=== PATIENT | male | born 1965 | race African-American/Black ===

== ENCOUNTER 2016-04-24 19:21 | Inpatient (IN) | payer OTHER ==
[2016-04-24 19:36] VITALS: BMI 24.3
--- NOTE | 2016-04-24 20:24 | PDOC ---
History of Present Illness - General History Source: Patient, Old Records Exam Limitations: No Limitations - History of Present Illness Initial Comments: 04/24/16 20:52 The patient is a 51 year old male with a past medical history of ETOH abuse, HTN , Type II diabetes, and minor stroke, who [facility], who presents with worsening abdominal and chest pain for a couple days and a syncopal episode today. The patient states that his pain started in his abdomen and began to radiate to his upper left chest. The patient notes that he has had similar pain before but not this severe. The patient reports that his pain is exacerbated by certain movements and deep inhalation. The patient reports no vomiting today but has had episodes haematemesis over the past few days. The patient reports associated hematochezia and shortness of breath. The patient reports that he has been non- compliant with his medications. The patient notes that his last ETOH intake was 3-4 hours ago so that he could alleviate tremors. <Randy Kapadia - Last Filed: 04/25/16 01:00> - General History Source: Patient Exam Limitations: No Limitations <Esme Padron - Last Filed: 04/26/16 08:07> - General Chief Complaint: Pain, Acute Stated Complaint: CHEST AND ABDOMINAL PAIN Time Seen by Provider: 04/24/16 19:30 Past History <Randy Kapadia - Last Filed: 04/25/16 01:00> - Past Medical History Anemia: No Asthma: No Cancer: No Cardiac Disorders: No CVA: No COPD: No CHF: No Dementia: No Diabetes: Yes GI Disorders: No Disorders: No HTN: Yes Hypercholesterolemia: No Kidney Stones: No Liver Disease: No Suicide Attempt (Hx): No Seizures: No Thyroid Disease: No - Surgical History Abdominal Surgery: No Appendectomy: No Cardiac Surgery: No Cholecystectomy: No Lung Surgery: No Neurologic Surgery: No Orthopedic Surgery: No - Reproductive History Testicular Surgery: No - Psycho/Social/Smoking Cessation Hx Anxiety: No Suicidal Ideation: No Smoking History: Current every day smoker Have you smoked in the past 12 months: Yes Number of Cigarettes Smoked Daily: 10 Information on smoking cessation initiated: No 'Breaking Loose' booklet given: 02/16/14 Hx Alcohol Use: Yes (daily last use this am) Drug/Substance Use Hx: No Substance Use Type: Alcohol Hx Substance Use Treatment: Yes <Esme Padron - Last Filed: 04/26/16 08:07> - Past Medical History Allergies/Adverse Reactions: Allergies Allergy/AdvReac Type Severity Reaction Status Date / Time No Known Allergies Allergy Verified 04/24/16 19:30 Home Medications: Ambulatory Orders Lisinopril [Prinivil] 20 mg PO DAILY #30 tablet 09/21/13 Metformin HCl [Glucophage -] 500 mg PO BIDAC #60 tablet 09/21/13 Review of Systems - Review of Systems Able to Perform ROS?: Yes Comments:: 04/24/16 20:52 GENERAL/CONSTITUTIONAL: No: fever, chills, weakness, loss of appetite. HEAD, EYES, EARS, NOSE AND THROAT: No: change in vision, ear pain, discharge, sore throat, throat swelling. CARDIOVASCULAR: Yes: Chest pain No: lightheadedness, palpitations, syncope RESPIRATORY: Yes: Shortness of breath No: cough, wheezing, hemoptysis, stridor. GASTROINTESTINAL: Yes: Hematochezia, hematemesis, abdominal pain. No: nausea, diarrhea, constipation. GENITOURINARY: No: dysuria, hematuria, frequency, urgency, flank pain. MUSCULOSKELETAL: No: back pain, neck pain, joint pain, muscle swelling or pain SKIN: No: lesions, pallor, rash or easy bruising. NEUROLOGIC: Yes: Syncope No: headache, vertigo, paresthesias, weakness ENDOCRINE: No: unexplained weight gain or loss HEMATOLOGIC/LYMPHATIC: No: anemia, easy bleeding, swelling nodes <Randy Kapadia - Last Filed: 04/25/16 01:00> *Physical Exam - Vital Signs Last Vital Signs Temp Pulse Resp BP Pulse Ox 97.8 F 84 24 147/102 97 04/24/16 20:28 04/24/16 20:28 04/24/16 20:28 04/24/16 20:28 04/24/16 20:28 - Physical Exam Comments: 04/24/16 20:52 GENERAL: The patient is in no acute distress. HEAD: Normal with no signs of trauma. EYES: PERRLA, EOMI, sclera anicteric, conjunctiva clear. ENT: Ears normal, nares patent, oropharynx clear without exudates. Moist mucous membranes. NECK: Normal range of motion, supple without lymphadenopathy, JVD, or masses. LUNGS: Breath sounds equal, clear to auscultation bilaterally. No wheezes, and no crackles. HEART:Regular rate and rhythm, normal S1 and S2 without murmur, rub or gallop. ABDOMEN: (+) Abnormal right inferior costal margin. Otherwise soft, nontender, normoactive bowel sounds. No guarding, no rebound. EXTREMITIES: Normal range of motion, no edema. No clubbing or cyanosis. No erythema, or tenderness. NEUROLOGICAL: Cranial nerves II through XII grossly intact. Normal speech. No focal neurological deficits. MUSCULOSKELETAL: Back nontender to palpation, no CVA tenderness SKIN: Warm, Dry, normal turgor, no rashes or lesions noted. <Randy Kapadia - Last Filed: 04/25/16 01:00> - Vital Signs Last Vital Signs Temp Pulse Resp BP Pulse Ox 97.9 F 102 H 22 83/49 97 04/24/16 19:30 04/24/16 19:30 04/24/16 19:30 04/24/16 19:30 04/24/16 19:30 <Esme Padron - Last Filed: 04/26/16 08:07> Heart Score/ECG Review - ECG Impressions Comment:: 04/24/16 20:53 1. ECG Impression: Normal sinus rhythm. Moderate voltage criteria for LVH, may be normal variant. Borderline ECG. Read and reviewed by Dr. Joceline Padron MD. <Randy Kapadia - Last Filed: 04/25/16 01:00> ED Treatment Course - LABORATORY CBC & Chemistry Diagram: 04/24/16 20:05 04/24/16 20:05 - ADDITIONAL ORDERS Additional order review: 04/24/16 20:05 RBC 4.60 D MCV 96.7 H MCHC 33.8 RDW 14.8 MPV 8.1 D Neutrophils % 71.3 Lymphocytes % 19.5 Monocytes % 7.8 Eosinophils % 0.0 Basophils % 1.4 - RADIOLOGY Radiograph Interpretation: 04/24/16 21:14 EXAM#: TYPE/EXAM: RESULT: [id number] RAD/CHEST X-RAY PORTABLE* Preadmission. Portable chest x-ray semierect. No prior is available for comparison. Inferior tip of the lateral costophrenic angles were not included. The cardiac silhouette is within normal limits in size and the lung is clear. Mediastinum and visualized osseous structures appear intact. Impression: No acute cardiopulmonary disease is present. Reported By: Randal Mesa MD Chest wall deformity. Rule out pancreatitis. CT scan of the chest, abdomen and pelvis without oral and intravenous contrast Compared to prior chest x-ray dated 04/24/2016. No prior CT scan is available for comparison. Included lower neck appears unremarkable. The heart is within normal limits in size with dilatation of the coronary arteries are present. No enlarged mediastinal or hilar lymph nodes are identified. Lung windows demonstrates minimal atelectatic changes in the dependent portion of the left lower lobe. In the abdomen and pelvis, liver is within normal limits in size with diffuse decreased attenuation consistent with a fatty liver. Gallbladder is partially distended with small intraluminal stones. The spleen, pancreas, both adrenal glands and both kidneys appear unremarkable. Stomach is partially distended limiting evaluation of its wall. There is no evidence of small bowel obstruction or enlarged retroperitoneal lymph nodes. Normal stool burden in the colon without wall thickening. Normal-appearing terminal ileum and appendix. Moderately distended urinary bladder without gross thickening of its wall. Normal size prostate gland. Perirectal and pericecal fat is clear. Visualized osseous structures appear intact with mild degenerative disc disease at L2-L3 level Impression: No enlarged mediastinal or hilar lymph nodes are identified. Calcification of the coronary arteries are present. No evidence of acute lung disease. Fatty liver. Small gallstones without CT evidence of acute cholecystitis. Normal-appearing pancreas without stranding of the surrounding fat. Reported By: Randal Mesa MD. Clinical indication: Transaminitis. Findings: The aorta has a normal appearance and normal caliber. The liver parenchyma is hyperechoic with fatty infiltration. The liver is mildly enlarged measuring 17.7 cm in length. Hepatopedal flow is demonstrated in the main portal vein. The CBD measures 4 mm in diameter within normal limits. Cholelithiasis and sludge noted in the gallbladder. There is no mural thickening or pericholecystic fluid. The right kidney has a normal appearance and echotexture measures 10.1 cm in length. No parenchymal mass, shadowing calculus or hydronephrosis is seen. Impression: Hepatic steatosis. Cholelithiasis and sludge in an otherwise unremarkable gallbladder. Reported by Dr. Carlos Hagen MD. <Randy Kapadia - Last Filed: 04/25/16 01:00> - LABORATORY CBC & Chemistry Diagram: 04/25/16 06:00 04/25/16 06:00 <Esme Padron - Last Filed: 04/26/16 08:07> Medical Decision Making - Medical Decision Making 04/24/16 20:18 I, Dr. Esme Padron, attest that this document has been prepared under my direction and personally reviewed by me in its entirety. I further attest, that it accurately reflects all work, treatment, procedures and medical decision -making performed by me. This is a 51 yo M with a history of alcohol abuse, h/o DM (non compliant), ?MS vs. ?CVA Pt was seen at [facility] today for alcohol detox Pt presents with epigastric pain, no radiation to the back Pt reported severe right lower chest wall pain and deformity PT denies trauma, falling Has no bruising 04/24/16 21:28 Laboratory Tests 10/17/13 10/17/13 04/24/16 08:15 08:15 20:05 WBC 3.4 L 4.1 Hgb 13.0 15.0 D Hct 38.4 44.5 D Plt Count 91 L D 148 D Sodium Potassium Chloride Carbon Dioxide BUN 6 L D Anion Gap Creatinine 0.9 Random Glucose AST 201 H D ALT 110 H D Alkaline Phosphatase Creatine Kinase Troponin I Lipase 04/24/16 20:05 WBC Hgb Hct Plt Count Sodium 129 L Potassium 4.8 Chloride 90 L D Carbon Dioxide 26 BUN 9 D Anion Gap 13 Creatinine 1.8 H D Random Glucose 175 H D AST 208 H ALT 95 H Alkaline Phosphatase 192 H D Creatine Kinase 1423 H Troponin I < 0.02 Lipase 583 H 04/24/16 21:30 04/24/16 23:13 CT chest: Atalectatic changes in the left lower lobe CT abd and pelvis: Fatty liver, GB distended with small intraluminal stones, spleen, pancreas and adrenal glands nml. No SBO. Case reviewed with hospitalist Pt has risk factors for CAD (? prior MS???) Presenting with epigastric pain Labs demonstrate pancreatitis however, given elevated CKMB and these symptoms, will place on tele. <Esme Padron - Last Filed: 04/26/16 08:07> *DC/Admit/Observation/Transfer - Attestations Scribe Attestion: 03/08/17 20:52 Documentation prepared by Randy Kapadia, acting as medical technologist chemistry for Esme Padron MD. <Randy Kapadia - Last Filed: 04/25/16 01:00> - Discharge Dispostion Admit: Yes <Esme Padron - Last Filed: 04/26/16 08:07> Diagnosis at time of Disposition: Epigastric pain, Alcohol abuse Pancreatitis Qualifiers: Chronicity: acute Pancreatitis type: alcohol induced Qualified Code(s): K85.2 - Alcohol induced acute pancreatitis - Discharge Dispostion Condition at time of disposition: Stable
[2016-04-24 20:32] LABS: INR 1.12 (0.82-1.09); PROTHROMBIN TIME (PATIENT) 12.4 SEC (9.98-11.88)
[2016-04-24 20:42] LABS: ALBUMIN 4.1 g/dl (3.4-5.0); ANION GAP 13 (8-16); BASOPHIL 1.4 % (0-2.0); BILIRUBIN,TOTAL 0.9 mg/dL (0.2-1.0); CALCIUM 9.3 mg/dL (8.5-10.1); CO2 26 mmol/L (21-32); CREATININE 1.8 mg/dL (0.7-1.3); GLUCOSE,RANDOM 175 mg/dL (74-106); MCH 32.7 pg (25.7-33.7); MCHC 33.8 g/dl (32.0-35.9); MEAN CELL VOLUME 96.7 fl (80-96); MEAN PLT VOLUME 8.1 fl (7.5-11.1); NEUTROPHILS 71.3 % (42.8-82.8); PLATELET COUNT 148 K/MM3 (134-434); RDW 14.8 % (11.9-15.9); SGOT/AST 208 U/L (15-37); SGPT/ALT 95 U/L (12-78); TOT PROT 9.3 g/dl (6.4-8.2); WHITE BLOOD COUNT 4.1 K/mm3 (4.0-10.0)
[2016-04-24 20:55] LABS: ALK PHOS 192 U/L (45-117); TROPONIN I < 0.02 ng/ml (0.00-0.05)
[2016-04-24] MEDS ORDERED: FOLIC ACID INJECTION - 1 MG, THIAMINE HCL 100 MG, MULTIVIT INJECTION ADULT 10 ML in SOD... IVPB ONE (21:29)
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
[2016-04-24] MEDS ORDERED: ASPIRIN 81 MG CHEWABLE TABLETS PO ONE (23:35)
[2016-04-24] MEDS ORDERED: ASPIRIN 325 MG TABLET ONE (23:40)
[2016-04-25] MEDS ORDERED: LORAZEPAM CARPU-JECT 2 MG/ML DISP.SYRIN ONE ×2 (00:46→13:26)
[2016-04-25] MEDS: LORAZEPAM CARPU-JECT 2 MG/ML DISP.SYRIN IVPUSH PRN ×3 (01:02→16:00)
[2016-04-25 07:03] LABS: BASOPHIL 1.5 % (0-2.0); EOSINOPHIL 0.3 % (0-4.5); MCH 32.9 pg (25.7-33.7); MEAN CELL VOLUME 96.9 fl (80-96); MEAN PLT VOLUME 8.2 fl (7.5-11.1); NEUTROPHILS 51.2 % (42.8-82.8); PLATELET COUNT 110 K/MM3 (134-434); WHITE BLOOD COUNT 3.7 K/mm3 (4.0-10.0)
[2016-04-25 07:27] LABS: ALBUMIN 3.4 g/dl (3.4-5.0); ANION GAP 12 (8-16); CALCIUM 8.4 mg/dL (8.5-10.1); CO2 24 mmol/L (21-32); CREATININE 0.9 mg/dL (0.7-1.3); GLUCOSE,RANDOM 85 mg/dL (74-106); MAGNESIUM 1.8 mg/dL (1.8-2.4); SGOT/AST 135 U/L (15-37); SGPT/ALT 73 U/L (12-78)
[2016-04-25 07:30] LABS: TROPONIN I < 0.02 ng/ml (0.00-0.05)
[2016-04-25 07:45] LABS: ALK PHOS 158 U/L (45-117); CHOLESTEROL 271 mg/dL (50-200); LDL CHOLESTEROL (ONLY SJRH) 103 mg/dL (5-100); PHOSPHOROUS 3.6 mg/dL (2.5-4.9); TOT PROT 7.7 g/dl (6.4-8.2)
[2016-04-25] MEDS ORDERED: LACTATED RINGERS SOLUTION 1,000 ML IV SCH (08:00)
[2016-04-25] MEDS ORDERED: chlordiazePOXIDE HCL 25 MG CAPSULE PO PRN (09:01)
--- NOTE | 2016-04-25 09:20 | PN ---
Progress Note (short form) - Note Progress Note: Cardiology Consult Dictated Alcoholism Abdominal Pain, elevated Lipase Coronary Ca2+ incidentally detected on abdominal CT REC: 3rd enzyme Echo ASA Check Lipids Strongly suggest GI evalution and Rehab/Addiction medicine consult for ETOH To consider stress test either prior to d/c or as outpatient if 3rd enzyme negative.
[2016-04-25] MEDS: SODIUM CHLORIDE 1,000 ML IV SCH (10:04)
[2016-04-25] MEDS ORDERED: FOLIC ACID 1 MG TABLET (FP) ONE (10:10)
[2016-04-25] MEDS ORDERED: ASPIRIN 81 MG CHEWABLE TABLETS ONE (10:10)
[2016-04-25] MEDS: ASPIRIN 81 MG CHEWABLE TABLETS PO SCH (10:13)
[2016-04-25] MEDS: FOLIC ACID 1 MG TABLET (FP) PO SCH (10:13)
[2016-04-25] MEDS: chlordiazePOXIDE HCL 25 MG CAPSULE PO SCH ×4 (10:13→22:53)
--- NOTE | 2016-04-25 10:48 | EKG ---
Test Reason : Blood Pressure : / mmHG Vent. Rate : 080 BPM Atrial Rate : 080 BPM P-R Int : 196 ms QRS Dur : 096 ms QT Int : 366 ms P-R-T Axes : 061 082 082 degrees QTc Int : 422 ms NORMAL SINUS RHYTHM MODERATE VOLTAGE CRITERIA FOR LVH, MAY BE NORMAL VARIANT BORDERLINE ECG NO PREVIOUS ECGS AVAILABLE Confirmed by LINCOLN PALOMINO MD ([id number]) on 04/25/2016 10:48:27 AM Referred By: Confirmed By:LINCOLN PALOMINO MD
[2016-04-25] MEDS ORDERED: chlordiazePOXIDE HCL 25 MG CAPSULE PO SCH (11:00)
--- NOTE | 2016-04-25 11:01 | PN ---
Physical Exam: SUBJECTIVE: Patient seen and examined at bedside. Pt. reports feeling weak today. Mild diaphoresis noted. Pt. states he feels "shaky". Denies abdominal pain, nausea. Pt. denies hematemesis, had one episode of bright red blood per rectum approximately 1 month ago and has not had any recurring symptoms since. One bowel movement in the toilet. Brown stool with no evidence of gross blood. OBJECTIVE: Vital Signs Period Temp Pulse Resp BP Sys/Nye Pulse Ox Last 24 Hr 98 F-98.1 F 73-74 18-22 125-155/87-90 96-96 GENERAL: The patient is awake, alert, and fully oriented to person, place, and time, in no acute distress. HEAD: Normal with no signs of trauma. EYES: PERRL, extraocular movements intact, sclera anicteric, conjunctiva clear. No ptosis. ENT: Ears normal, nares patent, oropharynx clear without exudates, moist mucous membranes. NECK: Trachea midline, full range of motion, supple. LUNGS: Breath sounds equal, clear to auscultation bilaterally, no wheezes, no crackles, no accessory muscle use. HEART: Regular rate and rhythm, S1, S2 without murmur, rub or gallop. ABDOMEN: Soft, nontender, nondistended, normoactive bowel sounds, no guarding, no rebound, no hepatosplenomegaly, no masses. RECTAL: External: no hemorrhoids or fissures noted. Normal sphincter tone. EXTREMITIES: 2+ pulses, warm, well-perfused, no edema. NEUROLOGICAL: Cranial nerves II through XII grossly intact. Normal speech, gait not observed. PSYCH: Mildly anxious. Normal affect. Denies auditory/visual hallucinations, tactile disturbances. (+) tremor. SKIN: (+) diaphoresis. Warm, normal turgor, no rashes or lesions noted Laboratory Results - last 24 hr 04/25/16 04/25/16 04/25/16 06:00 06:00 06:00 WBC 3.7 L RBC 3.86 L Hgb 12.7 D Hct 37.5 D MCV 96.9 H MCHC 34.0 RDW 15.0 Plt Count 110 L D MPV 8.2 Neutrophils % 51.2 D Lymphocytes % 38.5 D Monocytes % 8.5 Eosinophils % 0.3 D Basophils % 1.5 Sodium 134 L Potassium 4.1 Chloride 98 Carbon Dioxide 24 Anion Gap 12 BUN 9 Creatinine 0.9 D Creat Clearance w eGFR > 60 Random Glucose 85 D Calcium 8.4 L Phosphorus 3.6 Magnesium 1.8 Total Bilirubin 1.0 AST 135 H D ALT 73 D Alkaline Phosphatase 158 H Creatine Kinase 950 H D CK-MB (CK-2) Rel Index Troponin I < 0.02 Total Protein 7.7 Albumin 3.4 Triglycerides 134 Cholesterol 271 H Total LDL Cholesterol 103 H HDL Cholesterol 157 H Lipase 274 04/25/16 06:00 WBC RBC Hgb Hct MCV MCHC RDW Plt Count MPV Neutrophils % Lymphocytes % Monocytes % Eosinophils % Basophils % Sodium Potassium Chloride Carbon Dioxide Anion Gap BUN Creatinine Creat Clearance w eGFR Random Glucose Calcium Phosphorus Magnesium Total Bilirubin AST ALT Alkaline Phosphatase Creatine Kinase CK-MB (CK-2) Rel Index Cancelled Troponin I Total Protein Albumin Triglycerides Cholesterol Total LDL Cholesterol HDL Cholesterol Lipase Active Medications Generic Name Dose Route Start Last Admin Trade Name Freq PRN Reason Stop Dose Admin Aspirin 81 mg 04/25/16 10:00 04/25/16 10:13 Asa - PO 81 mg DAILY KYLE Administration Chlordiazepoxide HCl 25 mg 04/25/16 09:01 Librium - PO 04/28/16 09:00 Q4H PRN WITHDRAWAL(CONT SUBST) Chlordiazepoxide HCl 25 mg 04/26/16 11:00 Librium - PO 04/27/16 05:01 [id number] KYLE Chlordiazepoxide HCl 15 mg 04/27/16 11:00 Librium - PO 04/28/16 05:01 [id number] KYLE Chlordiazepoxide HCl 50 mg 04/25/16 10:00 04/25/16 10:13 Librium - PO 04/25/16 23:01 50 mg [id number] KYLE Administration Folic Acid 1 mg 04/25/16 10:00 04/25/16 10:13 Folic Acid - PO 1 mg DAILY KYLE Administration Sodium Chloride 1,000 mls @ 125 mls/hr 04/25/16 08:00 04/25/16 10:04 Normal Saline - IV 125 mls/hr ASDIR KYLE Administration Lorazepam 2 mg 04/24/16 22:47 04/25/16 01:02 Ativan Injection - IVPUSH 04/25/16 16:48 2 mg Q6H PRN Administration WITHDRAWAL(CONT SUBST) Thiamine HCl 100 mg 04/25/16 10:00 Vitamin B1 - PO DAILY KYLE ASSESSMENT/PLAN: Imaging/Reports: EKG: NSR at a rate of 80. Upward sloping ST elevations present in leads V3, V4. No reciprocal changes noted. LVH noted. CT Head: No evidence of ICH, no acute ischemic changes Abd/Chest CT: No enlarged mediastinal/hilar lymphnodes are identified. Calcification of the coronary arteries present. No evidence of acute lung disease. Small gallstones without CT evidence of acute cholecystitis. Normal appearing pancreas without stranding of the surrounding fat. CXR: No evidence of acute cardiopulmonary disease present. RUQ US: hepatomegaly with hepatic steatosis, normal pancreas, no focal liver mass/biliary dilatation, gall stones noted with no gall bladder wall thickening identified without biliary sludge observed. Pt. is a 51 y/o male with a PMH of HTN, DM Type II, Chronic Alcohol abuse, presents to the ED complaining of chest pain, epigastric pain with syncopal episode. 1. Chest pain r/o ACS -- CK trending down today. 1423 --> 769 -- Troponin series negative. -- Repeat EKG -- Echo ordered -- Consider inpatient stress test. -- Cardiology consult appreciated -- Continue with ASA 2. Syncope: -- CT head is negative for ICH. -- Continue tele monitoring. -- Possibly d/t dehydration as shown by hyponatremia, hypovolemia, STALIN. 3. Alcohol abuse/ withdrawal: -- CIWA score 10. -- Librium protocol started (Day #1). First dose at 10:00 -- Pt has history of seizures d/t alcohol withdrawal. -- Ativan PRN for break through symptoms -- Continue Thiamine and folic acid -- Heme occult testing for reported hematochezia. 4. Elevated Lipase Levels: -- Resolved: Lipase today 274; no abdominal pain on exam -- Lipase was elevated yesterday (583). While the value was elevated, was not elevated to three times normal which is diagnostic for pancreatitis. -- Continue with IVF 4. Transaminitis: -- Liver Enzymes trending down today -- AST 208 --> 135 -- ALT 95 --> 73 -- Will start librium protocol at this time. -- RUQ US: hepatomegaly with hepatic steatosis, normal pancreas, no focal liver mass/biliary dilatation, gall stones noted with no gall bladder wall thickening identified. No biliary sludge observed. -- Hepatitis panel pending. -- Will continue to trend. 5. STALIN: -- Secondary to elevated CK, trending down today -- Creatinine trending down. 1.8 --> 0.9 -- Continue with IV fluids 6. Hyponatremia: -- Na increased from yesterday, 129 -->134 -- Will continue with IV fluids. FEN -- IVF, NS @ rate of 120 per hr. -- Replete as necessary; sodium trending upward with fluids -- Advance to clear liquid diet DVT prophylaxis: lovenox SQ daily; SCD's Pt. continues to require inpatient care; will consider cardiac stress test when pt. is medically stable. Full Code. Visit type - Emergency Visit Emergency Visit: Yes ED Registration Date: 04/24/16 Care time: The patient presented to the Emergency Department on the above date and was hospitalized for further evaluation of their emergent condition. - New Patient This patient is new to me today: Yes Date on this admission: 04/25/16 - Critical Care Critical Care patient: No - Discharge Referral Referred to [facility] No
[2016-04-25 13:31] LABS: TROPONIN I < 0.02 ng/ml (0.00-0.05)
[2016-04-25] MEDS ORDERED: chlordiazePOXIDE HCL 25 MG CAPSULE ONE (14:55)
[2016-04-25] MEDS: THIAMINE HCL 100 MG TABLET (FP) PO SCH (15:59)
[2016-04-25] MEDS ORDERED: IBUPROFEN 600 MG TABLET (FP) PO ONE (19:59)
--- NOTE | 2016-04-25 21:30 | CON.GI ---
Consult Consult Specialty:: GI Reason for Consultation:: abdominal pain - History of Present Illness Chief Complaint: abdominal pain with coffeeground emesis History of Present Illness: 51 M with ETOH abuse, HTN, DM2 sent from [facility] with progressive abdominal pain for the past 3 days. BAL on admission was 404. On admission, he had a lipase of 583 which dropped to 274 24 hours later. - History Source History Provided By: Patient, Medical Record Limitations to Obtaining History: Poor Historian - Alcohol/Substance Use Hx Alcohol Use: Yes (daily last use this am) - Smoking History Smoking history: Current every day smoker Have you smoked in the past 12 months: Yes Aproximately how many cigarettes per day: 10 Home Medications - Allergies Allergies/Adverse Reactions: Allergies Allergy/AdvReac Type Severity Reaction Status Date / Time No Known Allergies Allergy Verified 04/24/16 19:30 - Home Medications Home Medications: Ambulatory Orders Lisinopril [Prinivil] 20 mg PO DAILY #30 tablet 09/21/13 Metformin HCl [Glucophage -] 500 mg PO BIDAC #60 tablet 09/21/13 Family Disease History - Family Disease History Family Disease History: Diabetes: Mother, Other: Father (alcohol dependence , ) Physical Exam-GI Vital Signs: Vital Signs Temperature 100.3 F H 04/25/16 17:00 Pulse Rate 96 H 04/25/16 17:00 Respiratory Rate 18 04/25/16 17:00 Blood Pressure 147/63 04/25/16 17:00 O2 Sat by Pulse Oximetry (%) 96 04/25/16 14:58 Constitutional: Yes: Cachectic, Thin HENT: Yes: Normocephalic Neck: Yes: Supple Cardiovascular: Yes: Regular Rate and Rhythm Respiratory: Yes: CTA Bilaterally Gastrointestinal Inspection: Yes: WNL ...Auscultate: Yes: Normoactive Bowel Sounds ...Palpate: Yes: Hepatomegaly, Soft Labs: CBC, BMP 04/25/16 06:00 04/25/16 06:00 INR, PTT INR 1.12 (0.82-1.09) 04/24/16 20:05 Imaging - Results Cat Scan: Report Reviewed Ultrasound: Report Reviewed (Both CT and U/S show normal gb with stones, no ductal dilation or intraluminal defects. LArge fatty liver with hepatopedal flow in the portal vein.) Assessment/Plan Patient admitted with extremely high BAL with abdominal pain, N/V likely secondary to alcoholic gastritis and alcoholic pancreatitis. His lipase has normalized since admission and his LFTs have trended down. Gallstones are an incidental finding-all issues relate to ETOH toxicity. Rec: Detox protocol, IVF, advance diet tomorrow to low NA, ETOH counseling, Pancreatic enzymes with meals. He is planning on rehab after he detoxes
[2016-04-25 23:49] LABS: C-REACTIVE PROTEIN 1.8 MG/DL (0.00-0.3)
[2016-04-26 01:24] LABS: URINE MARIJUANA THC NEGATIVE ng/ml (CUTOFF=50)
[2016-04-26 07:57] LABS: BASOPHIL 0.4 % (0-2.0); EOSINOPHIL 0.2 % (0-4.5); MCH 33.3 pg (25.7-33.7); MCHC 34.6 g/dl (32.0-35.9); MEAN CELL VOLUME 96.2 fl (80-96); MEAN PLT VOLUME 8.7 fl (7.5-11.1); NEUTROPHILS 81.9 % (42.8-82.8); PLATELET COUNT 79 K/MM3 (134-434); RDW 14.4 % (11.9-15.9); WHITE BLOOD COUNT 8.4 K/mm3 (4.0-10.0)
[2016-04-26] MEDS ORDERED: LIPASE/PROTEASE/AMYLASE 6,000 UNIT CAPSULE PO SCH (08:00)
[2016-04-26] MEDS ORDERED: PT OWN MED DRAWER 7, Y5N ONE (08:06)
[2016-04-26] MEDS: SODIUM CHLORIDE 1,000 ML IV SCH (08:21)
[2016-04-26 08:39] LABS: ALBUMIN 3.1 g/dl (3.4-5.0); ALK PHOS 148 U/L (45-117); ANION GAP 14 (8-16); BILIRUBIN,TOTAL 1.7 mg/dL (0.2-1.0); CALCIUM 8.7 mg/dL (8.5-10.1); CO2 24 mmol/L (21-32); CREATININE 0.8 mg/dL (0.7-1.3); GLUCOSE,RANDOM 78 mg/dL (74-106); SGOT/AST 99 U/L (15-37); SGPT/ALT 55 U/L (12-78); TOT PROT 6.8 g/dl (6.4-8.2)
--- NOTE | 2016-04-26 08:56 | PN ---
Progress Note, Physician Chief Complaint: TELE: NSR Echo normal appreciate GI input - Current Medication List Current Medications: Active Medications Aspirin (Asa -) 81 mg PO DAILY [facility] Last Admin: 04/25/16 10:13 Dose: 81 mg Chlordiazepoxide HCl (Librium -) 25 mg PO Q4H PRN PRN Reason: WITHDRAWAL(CONT SUBST) Stop: 04/28/16 09:00 Last Admin: 04/25/16 14:57 Dose: 25 mg Chlordiazepoxide HCl (Librium -) 25 mg PO [id number] [facility] Stop: 04/27/16 05:01 Chlordiazepoxide HCl (Librium -) 15 mg PO Q0D-AWS [facility] Stop: 04/28/16 05:01 Folic Acid (Folic Acid -) 1 mg PO DAILY [facility] Last Admin: 04/25/16 10:13 Dose: 1 mg Sodium Chloride (Normal Saline -) 1,000 mls @ 125 mls/hr IV ASDIR [facility] Last Admin: 04/26/16 08:21 Dose: 125 mls/hr Lisinopril (Prinivil) 20 mg PO DAILY [facility] Lorazepam (Ativan Injection -) 1 mg IVPUSH Q1H PRN PRN Reason: ANXIETY Last Admin: 04/25/16 16:00 Dose: 1 mg Pancrelipase (Creon Dr 6,000 Units Capsule) 4 cap PO TIDCM [facility] Last Admin: 04/26/16 08:19 Dose: 4 cap Thiamine HCl (Vitamin B1 -) 100 mg PO DAILY [facility] Last Admin: 04/25/16 15:59 Dose: 100 mg - Objective Vital Signs: Vital Signs Temperature 98.7 F 04/26/16 07:00 Pulse Rate 75 04/26/16 07:00 Respiratory Rate 18 04/26/16 07:00 Blood Pressure 152/85 04/26/16 07:00 O2 Sat by Pulse Oximetry (%) 95 04/26/16 07:00 Constitutional: Yes: No Distress Eyes: Yes: Conjunctiva Clear Cardiovascular: Yes: Regular Rate and Rhythm Respiratory: Yes: CTA Bilaterally Gastrointestinal: Yes: Soft Edema: No Labs: CBC, BMP 04/26/16 05:35 04/26/16 05:35 INR, PTT INR 1.12 (0.82-1.09) 04/24/16 20:05 Laboratory Tests 04/24/16 04/24/1617 20:05 20:05 06:00 WBC Hgb Plt Count Sodium Potassium BUN Troponin I < 0.02 < 0.02 Stool Occult Blood Opiates Screen Methadone Screen Barbiturate Screen Phencyclidine Screen Ur Amphetamines Screen MDMA (Ecstasy) Screen Benzodiazepines Screen Cocaine Screen U Marijuana (THC) Screen Alcohol, Quantitative 404.4 H* 04/25/16 04/25/16 04/26/16 12:32 20:45 00:00 WBC Hgb Plt Count Sodium Potassium BUN Troponin I < 0.02 Stool Occult Blood Negative Opiates Screen Negative Methadone Screen Negative Barbiturate Screen Negative Phencyclidine Screen Negative Ur Amphetamines Screen Negative MDMA (Ecstasy) Screen Negative Benzodiazepines Screen Positive Cocaine Screen Negative U Marijuana (THC) Screen Negative Alcohol, Quantitative 04/26/16 04/26/16 05:35 05:35 WBC 8.4 D Hgb 12.0 Plt Count 79 L D Sodium 133 L Potassium 3.6 BUN 12 D Troponin I Stool Occult Blood Opiates Screen Methadone Screen Barbiturate Screen Phencyclidine Screen Ur Amphetamines Screen MDMA (Ecstasy) Screen Benzodiazepines Screen Cocaine Screen U Marijuana (THC) Screen Alcohol, Quantitative - ....Imaging EKG: Image Reviewed Assessment/Plan Syncope due to ETOH intoxication Alcoholism Abdominal pain due to mild pancreatitis Coronary Ca2+: asymptomatic REC: Nl LV fxn with no arrhythmias. Syncope due to ETOH intoxication. No further cardiac w/u indicated at this time. Have spoken to patient and recommended outpatient stress test after detox. Will be provided our office telephone # to f/u after discharge.
[2016-04-26] MEDS: THIAMINE HCL 100 MG TABLET (FP) PO SCH (09:09)
[2016-04-26] MEDS: FOLIC ACID 1 MG TABLET (FP) PO SCH (09:09)
[2016-04-26] MEDS: ASPIRIN 81 MG CHEWABLE TABLETS PO SCH (09:09)
[2016-04-26] MEDS: LORAZEPAM CARPU-JECT 2 MG/ML DISP.SYRIN IVPUSH PRN (09:48)
--- NOTE | 2016-04-26 09:55 | PN ---
Physical Exam: SUBJECTIVE: Patient seen and examined at bedside. Pt. anxious and agitated on exam. He states that he wants to get out of here so he can see his doctor. He states that he would go back to [facility]; but is concerned because it is getting late in the day. Admits to cough. Denies shortness of breath, fevers, chills, dysuria, frequency, hematuria. Nurse reports fever of 100.5 overnight. OBJECTIVE: Vital Signs Period Temp Pulse Resp BP Sys/Nye Pulse Ox Last 24 Hr 97.8 F-100.5 F 75-109 18-28 124-152/63-85 93-96 GENERAL: The patient is awake, alert, and fully oriented, in no acute distress. HEAD: Normal with no signs of trauma. EYES: PERRL, extraocular movements intact, sclera anicteric, conjunctiva clear. No ptosis. ENT: Ears normal, nares patent, oropharynx clear without exudates, moist mucous membranes. NECK: Trachea midline, full range of motion, supple. LUNGS: Breath sounds equal, clear to auscultation bilaterally, no wheezes, no crackles, no accessory muscle use. HEART: Regular rate and rhythm, S1, S2 without murmur, rub or gallop. ABDOMEN: Soft, nontender, nondistended, normoactive bowel sounds, no guarding, no rebound, no hepatosplenomegaly, no masses. EXTREMITIES: 2+ pulses, warm, well-perfused, no edema. NEUROLOGICAL: Cranial nerves II through XII grossly intact. Normal speech, tremors present in the hands and arms, gait not observed. PSYCH: Anxious on exam. Pressured speech and disjointed thought process. SKIN: Warm, dry, normal turgor, no rashes or lesions noted Laboratory Results - last 24 hr 04/25/16 04/25/16 04/25/16 06:00 12:00 12:32 WBC RBC Hgb Hct MCV MCHC RDW Plt Count MPV Neutrophils % Lymphocytes % Monocytes % Eosinophils % Basophils % Sodium Potassium Chloride Carbon Dioxide Anion Gap BUN Creatinine Creat Clearance w eGFR Random Glucose Calcium Total Bilirubin AST ALT Alkaline Phosphatase Creatine Kinase 769 H Creatine Kinase Index 0.7 CK-MB (CK-2) 5.798 H CK-MB (CK-2) Rel Index Troponin I < 0.02 C-Reactive Protein Cancelled 1.8 H Total Protein Albumin Lipase 274 Stool Occult Blood Opiates Screen Methadone Screen Barbiturate Screen Phencyclidine Screen Ur Amphetamines Screen MDMA (Ecstasy) Screen Benzodiazepines Screen Cocaine Screen U Marijuana (THC) Screen 04/25/16 04/25/16 04/26/16 12:32 20:45 00:00 WBC RBC Hgb Hct MCV MCHC RDW Plt Count MPV Neutrophils % Lymphocytes % Monocytes % Eosinophils % Basophils % Sodium Potassium Chloride Carbon Dioxide Anion Gap BUN Creatinine Creat Clearance w eGFR Random Glucose Calcium Total Bilirubin AST ALT Alkaline Phosphatase Creatine Kinase Creatine Kinase Index CK-MB (CK-2) CK-MB (CK-2) Rel Index Cancelled Troponin I C-Reactive Protein Total Protein Albumin Lipase Stool Occult Blood Negative Opiates Screen Negative Methadone Screen Negative Barbiturate Screen Negative Phencyclidine Screen Negative Ur Amphetamines Screen Negative MDMA (Ecstasy) Screen Negative Benzodiazepines Screen Positive Cocaine Screen Negative U Marijuana (THC) Screen Negative 04/26/16 04/26/16 04/26/16 05:35 05:35 05:35 WBC 8.4 D RBC 3.59 L Hgb 12.0 Hct 34.6 L MCV 96.2 H MCHC 34.6 RDW 14.4 Plt Count 79 L D MPV 8.7 Neutrophils % 81.9 D Lymphocytes % 13.6 D Monocytes % 3.9 Eosinophils % 0.2 Basophils % 0.4 Sodium 133 L Potassium 3.6 Chloride 95 L Carbon Dioxide 24 Anion Gap 14 BUN 12 D Creatinine 0.8 Creat Clearance w eGFR > 60 Random Glucose 78 Calcium 8.7 Total Bilirubin 1.7 H D AST 99 H D ALT 55 D Alkaline Phosphatase 148 H Creatine Kinase Creatine Kinase Index CK-MB (CK-2) CK-MB (CK-2) Rel Index Troponin I C-Reactive Protein Total Protein 6.8 Albumin 3.1 L Lipase 238 Cancelled Stool Occult Blood Opiates Screen Methadone Screen Barbiturate Screen Phencyclidine Screen Ur Amphetamines Screen MDMA (Ecstasy) Screen Benzodiazepines Screen Cocaine Screen U Marijuana (THC) Screen Active Medications Generic Name Dose Route Start Last Admin Trade Name Freq PRN Reason Stop Dose Admin Aspirin 81 mg 04/25/16 10:00 04/26/16 09:09 Asa - PO 81 mg DAILY KYLE Administration Chlordiazepoxide HCl 25 mg 04/25/16 09:01 04/25/16 14:57 Librium - PO 04/28/16 09:00 25 mg Q4H PRN Administration WITHDRAWAL(CONT SUBST) Chlordiazepoxide HCl 25 mg 04/26/16 11:00 Librium - PO 04/27/16 05:01 [id number] KYLE Chlordiazepoxide HCl 15 mg 04/27/16 11:00 Librium - PO 04/28/16 05:01 [id number] KYLE Folic Acid 1 mg 04/25/16 10:00 04/26/16 09:09 Folic Acid - PO 1 mg DAILY KYLE Administration Sodium Chloride 1,000 mls @ 125 mls/hr 04/25/16 08:00 04/26/16 08:21 Normal Saline - IV 125 mls/hr ASDIR KYLE Administration Lisinopril 20 mg 04/26/16 10:00 04/26/16 09:09 Prinivil PO 20 mg DAILY KYLE Administration Lorazepam 1 mg 04/25/16 15:40 04/26/16 09:48 Ativan Injection - IVPUSH 1 mg Q1H PRN Administration ANXIETY Pancrelipase 4 cap 04/26/16 08:00 04/26/16 08:[address] 6,000 Units Capsule PO 4 cap TIDCM KYLE Administration Thiamine HCl 100 mg 04/25/16 10:00 04/26/16 09:09 Vitamin B1 - PO 100 mg DAILY KYLE Administration ASSESSMENT/PLAN: Imaging/Reports: EKG: NSR at a rate of 80. Upward sloping ST elevations present in leads V3, V4. No reciprocal changes noted. LVH noted. CT Head: No evidence of ICH, no acute ischemic changes Abd/Chest CT: No enlarged mediastinal/hilar lymphnodes are identified. Calcification of the coronary arteries present. No evidence of acute lung disease. Small gallstones without CT evidence of acute cholecystitis. Normal appearing pancreas without stranding of the surrounding fat. CXR: No evidence of acute cardiopulmonary disease present. RUQ US: hepatomegaly with hepatic steatosis, normal pancreas, no focal liver mass/biliary dilatation, gall stones noted with no gall bladder wall thickening identified without biliary sludge observed. Pt. is a 51 y/o male with a PMH of HTN, DM Type II, Chronic Alcohol abuse, presents to the ED complaining of chest pain, epigastric pain with syncopal episode. 1. Chest pain r/o ACS -- Per cardiology; pt can have an out patient stress test when he is finished with detox. -- Troponin series negative 2. Fever: -- Pt. spiked fever of 100.5 overnight; new infection vs. withdrawal symptoms -- Was given one dose of ibuprofen with relief; no fevers since -- WBC's trending up but WNL 3.7 --> 8.4 -- Will look for possible source of infection; UA and CXR ordered. 3. Alcohol abuse/ withdrawal: -- CIWA score 11. -- Librium protocol started (Day #2). -- Pt has history of seizures d/t alcohol withdrawal. -- Ativan given for increased agitation and anxiety. -- Continue Thiamine and folic acid -- Heme occult testing is negative for occult blood 4. Syncope: -- CT head is negative for ICH. -- Continue tele monitoring. -- Possibly d/t dehydration as shown by hyponatremia, hypovolemia, STALIN. 5. Elevated Lipase Levels: -- Resolved -- GI consult appreciated; pancreatic enzymes ordered 6. Transaminitis: -- Liver Enzymes trending down today -- AST 135 --> 99 -- ALT 73 --> 55 -- Continue librium protocol. -- Hepatitis panel pending. -- Will continue to trend. 7. STALIN: -- Secondary to elevated CK, resolved -- Creatinine back within normal limits 0.8, 8. Hyponatremia: -- Na stablilized. 134 yesterday, 133 today. -- Will continue with IV fluids. FEN -- IVF, NS @ rate of 125 per hr. -- Replete as necessary; sodium trending upward with fluids -- Clear liquid diet DVT prophylaxis: lovenox SQ daily; SCD's Pt. continues to require inpatient care; will consider cardiac stress test when pt. is medically stable. Full Code. Visit type - Emergency Visit Emergency Visit: Yes ED Registration Date: 04/24/16 Care time: The patient presented to the Emergency Department on the above date and was hospitalized for further evaluation of their emergent condition. - New Patient This patient is new to me today: No - Critical Care Critical Care patient: No - Discharge Referral Referred to [facility] No
[2016-04-26] MEDS ORDERED: LISINOPRIL 10 MG TABLET (FP) PO SCH (10:00)
--- NOTE | 2016-04-26 10:06 | CONS ---
CARDIOLOGY CONSULTATION DATE OF CONSULTATION: 04/25/2016 REQUESTED BY: NAYA Milian REASON FOR CONSULTATION: 1. Coronary calcifications. 2. Abdominal pain. 3. Chest pain. 4. Syncope HISTORY OF PRESENT ILLNESS: The patient is a 51-year-old male with past medical history of alcoholism and "enlarged heart." Presents to the emergency room with abdominal pain. Patient states he had diffuse abdominal pain yesterday prompting him to come to the emergency department. He is an alcoholic and drinks about 1 pint of liquor daily. In the emergency department he was found to have an elevated lipase and underwent CT scans of the chest, abdomen and pelvis, which showed the following: fatty liver with small gallstones. No evidence of acute cholecystitis, a normal-appearing pancreas. Incidentally detected were calcifications of the coronary arteries. There is also a report of a syncopal episode yesterday, which patient does not recall. He was acutely intoxicated with ETOH. The patient denies chest pain. He denies exertional chest pain. He denies shortness of breath, palpitations. He denies history of prior myocardial infarction. PAST MEDICAL HISTORY: His past medical history is significant for diabetes and hypertension. ALLERGIES: He has no known drug allergies. MEDICATIONS: His home medications include metformin 500 mg b.i.d. and Prinivil 20 mg daily. Here he has been started on baby aspirin, Librium taper, folic acid, Ativan p.r.n. and hydration with normal saline as well as thiamine. FAMILY HISTORY: Family history was noncontributory. SOCIAL HISTORY: He drinks 1 pint of liquor per day and smokes daily, half a pack per day. He denies illicit drug use. PHYSICAL EXAMINATION: Vital signs: He was afebrile with temperature 98.1, pulse 73, blood pressure 125/87. O2 saturation was normal on room air. Neck: No bruits, 2+ pulses. Heart: S1, S2/regular. No murmurs. Chest: Clear. Abdomen: Soft, nontender, no rebound or guarding. Extremities: No edema. EKG showed normal sinus rhythm with left ventricular hypertrophy and early repolarization. Nonspecific T-wave inversion in V1 and in V2. LABS: Sodium 134, potassium 4.1, creatinine 0.9, AST 135, ALT 73. CK 1423, 950. Troponin negative x 2 sets. LDL cholesterol is 103. Tox screen was positive for alcohol level of 404. Hepatitis panel is pending. Head CT was negative. Chest x-ray: No acute cardiopulmonary disease. ASSESSMENT: 51-year-old male, alcoholic, presented to the emergency department with diffuse abdominal pain, found to have elevated lipase level. Incidentally detected were coronary calcifications prompting a cardiology consultation. PLAN: Patient is asymptomatic from a coronary standpoint at this time and denies chest pain. His primary symptoms were abdominal pain. Coronary calcification was incidentally detected on abdominal imaging. Reported episode of syncope, while intoxicated. 1. Will check fasting lipids and initiate statin therapy if LDL greater than 100. 2. Aspirin 81 mg daily, if tolerated. 3. Echocardiogram to assess left ventricular function, given his history of "enlarged heart." 4. Strongly suggest GI consultation and rehab/addiction medicine consultation for his alcoholism and for evaluation of his abdominal pain. 5. Given his risk factors, a stress test would be prudent in the future but does not necessarily need to be done as an inpatient. If he proves reliable, he can have it as an outpatient soon after discharge. 6. Syncope occurs in setting of acute ETOH intoxication, no further work up planned if LV function normal on echo. Thank you for the consultation. MIROSLAVA ANTUNEZ M.D. [id number] MTDD
[2016-04-26 10:15] LABS: URINE APPEARANCE CLEAR; URINE BILIRUBIN NEGATIVE (NEGATIVE); URINE BLOOD NEGATIVE (NEGATIVE); URINE GLUCOSE (UA) 1+ (NEGATIVE); URINE KETONE NEGATIVE (NEGATIVE); URINE NITRITE NEGATIVE (NEGATIVE); URINE UROBILINOGEN 4.0 E.U/dl E.U./dl (0.2-1.0)
[2016-04-26 10:33] LABS: URINE LEUK ESTERASE TRACE (NEGATIVE); URINE PROTEIN 1+ (NEGATIVE)
[2016-04-26 10:34] LABS: URINE COLOR DK YELLOW
[2016-04-26 10:38] LABS: URINE BACTERIA RARE /hpf (NONE SEEN); URINE HYALINE CAST 1 /lpf; URINE MUCUS RARE; URINE RBC 1 /hpf (0-3); URINE WBC 15 /hpf (3-5)
[2016-04-26 10:45] VITALS: BP 151/91; PULSE 97; TEMP 97.2
[2016-04-26] MEDS ORDERED: chlordiazePOXIDE HCL 25 MG CAPSULE PO SCH (11:00)
--- NOTE | 2016-04-26 11:01 | DS ---
Physical Exam: SUBJECTIVE: Patient seen and examined at bedside. He is very anxious and and wants to leave the hospital. OBJECTIVE: Vital Signs Period Temp Pulse Resp BP Sys/Nye Pulse Ox Last 24 Hr 97.2 F-100.5 F 75-109 18-28 124-152/63-91 93-96 PHYSICAL EXAM GENERAL: The patient is awake, alert, and fully oriented, in no acute distress. HEAD: Normal with no signs of trauma. EYES: PERRL, extraocular movements intact, sclera anicteric, conjunctiva clear. No ptosis. ENT: Ears normal, nares patent, oropharynx clear without exudates, moist mucous membranes. NECK: Trachea midline, full range of motion, supple. LUNGS: Breath sounds equal, clear to auscultation bilaterally, no wheezes, no crackles, no accessory muscle use. HEART: Regular rate and rhythm, S1, S2 without murmur, rub or gallop. ABDOMEN: Soft, nontender, nondistended, normoactive bowel sounds, no guarding, no rebound, no hepatosplenomegaly, no masses. EXTREMITIES: 2+ pulses, warm, well-perfused, no edema. NEUROLOGICAL: Cranial nerves II through XII grossly intact. Normal speech, tremors present in the hands and arms, gait not observed. PSYCH: Anxious on exam. Pressured speech and disjointed thought process. SKIN: Warm, dry, normal turgor, no rashes or lesions noted LABS Laboratory Results - last 24 hr 04/25/16 04/25/16 04/25/16 12:00 12:32 12:32 WBC RBC Hgb Hct MCV MCHC RDW Plt Count MPV Neutrophils % Lymphocytes % Monocytes % Eosinophils % Basophils % Sodium Potassium Chloride Carbon Dioxide Anion Gap BUN Creatinine Creat Clearance w eGFR Random Glucose Calcium Total Bilirubin AST ALT Alkaline Phosphatase Creatine Kinase 769 H Creatine Kinase Index 0.7 CK-MB (CK-2) 5.798 H CK-MB (CK-2) Rel Index Cancelled Troponin I < 0.02 C-Reactive Protein Cancelled 1.8 H Total Protein Albumin Lipase Urine Color Urine Appearance Urine pH Ur Specific [place] Urine Protein Urine Glucose (UA) Urine Ketones Urine Blood Urine Nitrite Urine Bilirubin Urine Urobilinogen Ur Leukocyte Esterase Urine RBC Urine WBC Ur Epithelial Cells Urine Bacteria Hyaline Casts Urine Mucus Stool Occult Blood Opiates Screen Methadone Screen Barbiturate Screen Phencyclidine Screen Ur Amphetamines Screen MDMA (Ecstasy) Screen Benzodiazepines Screen Cocaine Screen U Marijuana (THC) Screen 04/25/16 04/26/16 04/26/16 20:45 00:00 05:35 WBC 8.4 D RBC 3.59 L Hgb 12.0 Hct 34.6 L MCV 96.2 H MCHC 34.6 RDW 14.4 Plt Count 79 L D MPV 8.7 Neutrophils % 81.9 D Lymphocytes % 13.6 D Monocytes % 3.9 Eosinophils % 0.2 Basophils % 0.4 Sodium Potassium Chloride Carbon Dioxide Anion Gap BUN Creatinine Creat Clearance w eGFR Random Glucose Calcium Total Bilirubin AST ALT Alkaline Phosphatase Creatine Kinase Creatine Kinase Index CK-MB (CK-2) CK-MB (CK-2) Rel Index Troponin I C-Reactive Protein Total Protein Albumin Lipase Urine Color Urine Appearance Urine pH Ur Specific [place] Urine Protein Urine Glucose (UA) Urine Ketones Urine Blood Urine Nitrite Urine Bilirubin Urine Urobilinogen Ur Leukocyte Esterase Urine RBC Urine WBC Ur Epithelial Cells Urine Bacteria Hyaline Casts Urine Mucus Stool Occult Blood Negative Opiates Screen Negative Methadone Screen Negative Barbiturate Screen Negative Phencyclidine Screen Negative Ur Amphetamines Screen Negative MDMA (Ecstasy) Screen Negative Benzodiazepines Screen Positive Cocaine Screen Negative U Marijuana (THC) Screen Negative 04/26/16 04/26/16 04/26/16 05:35 05:35 09:50 WBC RBC Hgb Hct MCV MCHC RDW Plt Count MPV Neutrophils % Lymphocytes % Monocytes % Eosinophils % Basophils % Sodium 133 L Potassium 3.6 Chloride 95 L Carbon Dioxide 24 Anion Gap 14 BUN 12 D Creatinine 0.8 Creat Clearance w eGFR > 60 Random Glucose 78 Calcium 8.7 Total Bilirubin 1.7 H D AST 99 H D ALT 55 D Alkaline Phosphatase 148 H Creatine Kinase Creatine Kinase Index CK-MB (CK-2) CK-MB (CK-2) Rel Index Troponin I C-Reactive Protein Total Protein 6.8 Albumin 3.1 L Lipase 238 Cancelled Urine Color Dk yellow Urine Appearance Clear Urine pH 7.0 Ur Specific [place] 1.020 Urine Protein 1+ H Urine Glucose (UA) 1+ H Urine Ketones Negative Urine Blood Negative Urine Nitrite Negative Urine Bilirubin Negative Urine Urobilinogen 4.0 e.u/dl Ur Leukocyte Esterase Trace H Urine RBC 1 Urine WBC 15 Ur Epithelial Cells Rare Urine Bacteria Rare Hyaline Casts 1 Urine Mucus Rare Stool Occult Blood Opiates Screen Methadone Screen Barbiturate Screen Phencyclidine Screen Ur Amphetamines Screen MDMA (Ecstasy) Screen Benzodiazepines Screen Cocaine Screen U Marijuana (THC) Screen HOSPITAL COURSE: Date of Admission:04/24/16 Date of Discharge: 04/26/16 Imaging: EKG: NSR at a rate of 80. Upward sloping ST elevations present in leads V3, V4. No reciprocal changes noted. LVH noted. CT Head: No evidence of ICH, no acute ischemic changes Abd/Chest CT: No enlarged mediastinal/hilar lymphnodes are identified. Calcification of the coronary arteries present. No evidence of acute lung disease. Small gallstones without CT evidence of acute cholecystitis. Normal appearing pancreas without stranding of the surrounding fat. CXR: No evidence of acute cardiopulmonary disease present. RUQ US: hepatomegaly with hepatic steatosis, normal pancreas, no focal liver mass/biliary dilatation, gall stones noted with no gall bladder wall thickening identified without biliary sludge observed. Consults: Dr. Mares; Cardiology Dr. Cutler; GI ED course: Pt. is a 51 y/o male with PMH of HTN, DM, chronic alcohol abuse presents to the ED from [facility] after a syncopal episode in the setting of alcohol use. He presented to the [facility] facility requesting detox. At that time, he complained of chest and abdominal pain and was referred to the ED. ED course was notable for a Na 129, Creatinine of 1.8, CK 1423, elevated LFT's and a Lipase of 583. His first troponin was negative. He was admitted to the hospital on telemetry for ACS work up as well as transaminitits, hyponatremia and elevated lipase levels. Hospital Course: Pt. was noted to have obvious tremors related to alcohol withdrawal. Detox was initiated using librium protocol with additional ativan as needed for break through tremors or agitation. Pt. had serial troponins drawn was ruled out for [place]. He was evaluated by cardiology and an outpatient stress test was deemed appropriate. CK levels, STALIN, and hyponatremia all corrected fluid administration. GI was consulted by cardiology for elevated lipase levels; recommended pancreatic enzymes at meals. Pt. spiked a low-grade fever over night on HOD#2. He was treated with ibuprofen and a UA and CXR were ordered to check for potential source of infection. Both were negative and fevers did not recur. Today, the patient is alert and oriented with normal insight and judgment. He is feeling anxious and wants to leave the hospital. He does not want to return to the [facility] detox facility. Risks of alcohol withdrawal seizures including were discussed with the patient and he verbalized understanding. IV catheters were removed and the patient signed out against medical advice. Dispo: AMA: Minutes to complete discharge: 35 Discharge Summary Reason For Visit: EPIGASTRIC PAIN Current Active Problems Alcohol abuse (Acute) Asthma (Acute) Chest pain (Acute) DVT prophylaxis (Acute) Epigastric pain (Acute) Hyponatremia (Acute) Pancreatitis (Acute) Transaminitis (Acute) Condition: Stable - Instructions Disposition: AGAINST MEDICAL ADVICE - Home Medications Comprehensive Discharge Medication List: Ambulatory Orders Lisinopril [Prinivil] 20 mg PO DAILY #30 tablet 09/21/13 Metformin HCl [Glucophage -] 500 mg PO BIDAC #60 tablet 09/21/13 This patient is new to me today: Yes Date on this admission: 04/26/16 Emergency Visit: Yes ED Registration Date: 04/24/16 Care time: The patient presented to the Emergency Department on the above date and was hospitalized for further evaluation of their emergent condition. Critical Care patient: No - Discharge Referral Referred to [facility] Med P.C.: No
[2016-04-27 00:06] LABS: HEP B SURFACE AB Non Reactive (.)
[2016-04-27] MEDS ORDERED: chlordiazePOXIDE 5 MG CAPSULE PO SCH (11:00)
== END 2016-04-26 10:45 | disposition left against medical advice (07) | DRG 391 ==
LOC: JER 19:21 → JERBED 23:18 → UNDOADMIN 23:59 → JERBED 23:59 → J4W 04-25 15:13
PROVIDERS: ADMIT Internal Medicine; ATTEND Registered Nurse Emergency
PROC: HZ2ZZZZ Detoxification Services for Substance Abuse Treatment (ICD-10-PCS; principal; 2016-04-24)
DX: K29.20 Alcoholic gastritis without bleeding (principal); K85.20 Alcohol induced acute pancreatitis without necrosis or infection; E87.1 Hypo-osmolality and hyponatremia; N17.9 Acute kidney failure, unspecified; F10.239 Alcohol dependence with withdrawal, unspecified; J98.11 Atelectasis; R07.89 Other chest pain; R10.13 Epigastric pain; R55 Syncope and collapse; E11.9 Type 2 diabetes mellitus without complications; I10 Essential (primary) hypertension; J45.909 Unspecified asthma, uncomplicated; F17.210 Nicotine dependence, cigarettes, uncomplicated; R74.0 Nonspecific elevation of levels of transaminase and lactic acid dehydrogenase [LDH]; K80.80 Other cholelithiasis without obstruction
CPT/HCPCS: 36415; 70450-TC; 71010-TC; 71250-TC; 74176-TC; 76705-TC; 80053; 80061; 80307; 81003; 81015; 82272; 82550; 82553; 83690; 83721; 83735; 84100; 84484; 85025; 85610; 86140; 86704; 86706; 86708; 87340; 93005; 93010; 93306-TC; 99285-25

== ENCOUNTER 2016-04-29 10:04 | Inpatient (IN) | payer OTHER ==
[2016-04-29 11:51] VITALS: BMI 26.6
--- NOTE | 2016-04-29 14:17 | HP ---
CIWA Score - CIWA Score Nausea/Vomitin-No Nausea/No Vomiting Muscle Tremors: 4-Moderate,w/Arms Extend Anxiety: 4-Mod. Anxious/Guarded Agitation: 3 Paroxysmal Sweats: 1-Minimal Palms Moist Orientation: 0-Oriented Tacttile Disturbances: 3-Moderate Itch/Numb/Burn Auditory Disturbances: 0-None Visual Disturbances: 0-None Headache: 0-None Present CIWA-Ar Total Score: 15 Admission ROS BHS - HPI Chief Complaint: DETOX TX FOR ALCOHOL DEPENDENCE Allergies/Adverse Reactions: Allergies Allergy/AdvReac Type Severity Reaction Status Date / Time No Known Allergies Allergy Verified 04/24/16 19:30 History of Present Illness: 51 Y/O AA/MALE WITH A HX OF ALCOHOL DEPENDENCE SEEKING DETOX TX. PT WAS TAKEN TO [facility] ER ON 04/24/16 WHEN HE PRESENTED HERE AT ADMISSION IN UNSTABLE CONDITION. PT LEFT [facility] TELEMETRY UNIT ON 04/26 BUT WENT HOME AND CAME BACK HERE TODAY INTOXICATED. PT HAS A HX OF DM, PANCREATITIS DUE TO ALCOHOLISM AND ALCOHOL WITHDRAWAL SEIZURE. Exam Limitations: No Limitations, Intoxication (DANIEL=0.136) - Ebola screening Have you traveled outside of the country in the last 21 days: No Have you had contact with anyone from an Ebola affected area: No Have you been sick,other than usual withdrawal symptoms: No Do you have a fever: No - Review of Systems Constitutional: Chills, Night Sweats, Changes in sleep EENT: reports: Blurred Vision, Tearing Respiratory: reports: Shortness of Breath (HX ASTHMA), Wheezing Cardiac: reports: Lightheadedness GI: reports: Poor Fluid Intake, Indigestion : reports: No Symptoms Reported Musculoskeletal: reports: Back Pain, Joint Pain, Muscle Pain Integumentary: reports: Bruising (HEAD/FOREHEAD FROM FALLING PER PATIENT.) Neuro: reports: Headache, Seizure, Tremors, Unsteady Gait, Dizziness Endocrine: reports: No Symptoms Reported Hematology: reports: No Symptoms Reported Psychiatric: reports: Orientated x3, Anxious Other Systems: Reviewed and Negative Patient History - Patient Medical History Hx Anemia: No Hx Asthma: No Hx Chronic Obstructive Pulmonary Disease (COPD): No Hx Cancer: No Hx Cardiac Disorders: No Hx Congestive Heart Failure: No Hx Hypertension: No (DENIES BP 103/82) Hx Hypercholesterolemia: No Hx Pacemaker: No HX Cerebrovascular Accident: No Hx Seizures: Yes (DUE TO ALCOHOL WITHDRAWAL PER PT) Hx Dementia: No Hx Diabetes: Yes (ON METFORMIN) Hx Gastrointestinal Disorders: Yes (PANCREATITIS HX) Hx Liver Disease: No Hx Genitourinary Disorders: No Hx Sexually Transmitted Disorders: No Hx Renal Disease (ESRD): No Hx Thyroid Disease: No Hx Human Immunodeficiency Virus (HIV): No (NEGATIVE HX) Hx Hepatitis C: No Hx Depression: No Hx Suicide Attempt: No (DENIES) Hx Bipolar Disorder: No Hx Schizophrenia: No - Patient Surgical History Past Surgical History: No Hx Neurologic Surgery: No Hx Cataract Extraction: No Hx Cardiac Surgery: No Hx Lung Surgery: No Hx Breast Surgery: No Hx Breast Biopsy: No Hx Abdominal Surgery: No Hx Appendectomy: No Hx Cholecystectomy: No Hx Genitourinary Surgery: No Hx Orthopedic Surgery: No Anesthesia Reaction: No - PPD History Previous Implant?: Yes Implanted On Prior [facility] Admission?: Yes Date: 09/19/13 Results: 0 mm PPD to be Administered?: Yes - Reproductive History Patient is a Female of Child Bearing Age (11 -55 yrs old): No (MALE) - Smoking Cessation Smoking history: Current every day smoker Have you smoked in the past 12 months: Yes Aproximately how many cigarettes per day: 10 Hx Chewing Tobacco Use: No Initiated information on smoking cessation: Yes 'Breaking Loose' booklet given: 04/29/16 - Substance & Tx. History Hx Alcohol Use: Yes (BEER) Hx Substance Use: No (DENIES) Substance Use Type: Alcohol Hx Substance Use Treatment: Yes ([facility]-DETOX) - Substances Abused Alcohol Route: Oral Frequency: Daily Amount used: vodka 1 pint, beer 4 of 16 oz Age of first use: 16 Date of Last Use: 04/29/16 Family Disease History - Family Disease History Family Disease History: Diabetes: Mother, Other: Father (alcohol dependence , ) Admission Physical Exam S - Vital Signs Vital Signs: Vital Signs - 24 hr 04/29/16 11:48 Temperature 96.1 F L Pulse Rate 92 H Respiratory 20 Rate Blood Pressure 103/82 - Physical General Appearance: Yes: Moderate Distress, Alcohol on Breath, Intoxicated, Irritable, Anxious HEENTM: Yes: EOMI, Normocephalic, JA, Pharynx Normal Respiratory: Yes: Chest Non-Tender, Lungs Clear, Normal Breath Sounds, No Respiratory Distress Neck: Yes: Supple, Trachea in good position Breast: Yes: Breast Exam Deferred Cardiology: Yes: Regular Rhythm, Regular Rate, S1, S2 Abdominal: Yes: Normal Bowel Sounds, Non Tender, Soft Genitourinary: Yes: Other (N/C) Back: Yes: Within Normal Limits Musculoskeletal: Yes: full range of Motion, Gait Steady Extremities: Yes: Normal Range of Motion, Non-Tender 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, Fully Oriented, Alert Integumentary: Yes: Dry, Warm Lymphatic: Yes: Within Normal Limits - Diagnostic (1) Alcohol dependence with uncomplicated withdrawal Current Visit: Yes Status: Acute (2) Asthma Current Visit: No Status: Acute (3) Essential hypertension Current Visit: Yes Status: Chronic (4) Type II diabetes mellitus Current Visit: Yes Status: Chronic Qualifiers: Diabetes mellitus complication status: without complication Cleared for Admission [facility] - Detox or Rehab [facility] Level of Care: Medically Managed Detox Regimen/Protocol: Librium (REDUCED REGIMEN PROTOCOL.) [facility] Breath Alcohol Content Breath Alcohol Content: 0.136 Urine Drug Screen - Results Drug Screen Negative: No Urine Drug Screen Results: BZO-Benzodiazepines
[2016-04-29] MEDS ORDERED: MAGNESIUM HYDROX 2400MG/30ML ORAL SUSPENSION 30 ML CUP PO PRN (15:03)
[2016-04-29] MEDS ORDERED: chlordiazePOXIDE HCL 25 MG CAPSULE PO PRN (15:03)
[2016-04-29] MEDS ORDERED: ACETAMINOPHEN 325 MG TABLET (FP) PO PRN (15:03)
[2016-04-29] MEDS ORDERED: MENTHOL/PHENOL 1 EACH UD MM PRN (15:03)
[2016-04-29] MEDS ORDERED: IBUPROFEN 400 MG TABLET (FP) PO PRN (15:03)
[2016-04-29] MEDS ORDERED: P-EPHED 60MG/TRIPROLIDI 2.5MG TABLET PO PRN (15:03)
[2016-04-29] MEDS ORDERED: LOPERAMIDE HCL 2 MG CAPSULE PO PRN (15:03)
[2016-04-29] MEDS ORDERED: MAGNESIUM CITRATE 300 ML BOTTLE PO PRN (15:03)
[2016-04-29] MEDS ORDERED: guaiFENesin/D-METHORPHAN HB 10 ML UNIT-DOSE CUPS PO PRN (15:03)
[2016-04-29] MEDS ORDERED: NICOTINE POLACRILEX 2 MG GUM BC PRN (15:03)
[2016-04-29] MEDS ORDERED: hydrOXYzine PAMOATE 25 MG CAPSULE (FP) PO PRN (15:03)
[2016-04-29] MEDS ORDERED: ALBUTEROL SO4 6.7 GM HFA INHALER IH PRN (17:45)
[2016-04-29] MEDS: metFORMIN HCL 500 MG TABLET (FP) PO SCH (18:42)
[2016-04-29] MEDS: NICOTINE 14 MG/24 HOURS TOPICAL PATCH TD SCH (18:47)
[2016-04-29 21:10] LABS: MCH 33.5 pg (25.7-33.7); MCHC 34.3 g/dl (32.0-35.9); MEAN CELL VOLUME 97.6 fl (80-96); MEAN PLT VOLUME 9.3 fl (7.5-11.1); PLATELET COUNT 127 K/MM3 (134-434); WHITE BLOOD COUNT 4.8 K/mm3 (4.0-10.0)
[2016-04-29 21:22] LABS: ALBUMIN 3.2 g/dl (3.4-5.0); ANION GAP 9 (8-16); CALCIUM 8.3 mg/dL (8.5-10.1); CO2 28 mmol/L (21-32); GLUCOSE,RANDOM 191 mg/dL (74-106); SGOT/AST 78 U/L (15-37); SGPT/ALT 67 U/L (12-78)
[2016-04-29 21:24] LABS: ALK PHOS 157 U/L (45-117); BILIRUBIN,TOTAL 0.5 mg/dL (0.2-1.0); CREATININE 0.7 mg/dL (0.7-1.3); TOT PROT 7.2 g/dl (6.4-8.2)
[2016-04-29] MEDS: diphenhydrAMINE HCL 50 MG CAPSULE PO PRN (22:52)
[2016-04-29] MEDS: chlordiazePOXIDE HCL 25 MG CAPSULE PO SCH (22:53)
[2016-04-29] MEDS: LISINOPRIL 10 MG TABLET (FP) PO SCH (22:53)
[2016-04-29] MEDS: THIAMINE HCL 100 MG TABLET (FP) PO SCH (23:05)
[2016-04-30 00:22] LABS: URINE APPEARANCE CLEAR; URINE BILIRUBIN NEGATIVE (NEGATIVE); URINE BLOOD NEGATIVE (NEGATIVE); URINE COLOR AMBER; URINE GLUCOSE (UA) 1+ (NEGATIVE); URINE KETONE NEGATIVE (NEGATIVE); URINE NITRITE NEGATIVE (NEGATIVE); URINE PROTEIN NEGATIVE (NEGATIVE); URINE UROBILINOGEN 4.0 E.U/dl E.U./dl (0.2-1.0)
[2016-04-30 00:36] LABS: URINE LEUK ESTERASE TRACE (NEGATIVE)
[2016-04-30] MEDS: chlordiazePOXIDE HCL 25 MG CAPSULE PO SCH ×3 (06:01→17:30)
[2016-04-30] MEDS: metFORMIN HCL 500 MG TABLET (FP) PO SCH ×2 (08:01→17:30)
[2016-04-30] MEDS ORDERED: LISINOPRIL 20 MG TABLET (FP) PO SCH (10:00)
--- NOTE | 2016-04-30 10:04 | PN ---
[facility] CIWA - CIWA Score Nausea/Vomitin-No Nausea/No Vomiting Muscle Tremors: 4-Moderate,w/Arms Extend Anxiety: 4-Mod. Anxious/Guarded Agitation: 4-Moderately Restless Paroxysmal Sweats: 1-Minimal Palms Moist Orientation: 0-Oriented Tacttile Disturbances: 3-Moderate Itch/Numb/Burn Auditory Disturbances: 0-None Visual Disturbances: 0-None Headache: 0-None Present CIWA-Ar Total Score: 16 S Progress Note (SOAP) Subjective: ANXIETY,SWEATS/CHILLS,TREMORS,FATIGUE. Objective: 04/30/16 10:03 Vital Signs Temperature 98.0 F 04/30/16 09:35 Pulse Rate 105 H 04/30/16 09:35 Respiratory Rate 18 04/30/16 09:35 Blood Pressure 167/87 04/30/16 09:35 O2 Sat by Pulse Oximetry (%) Laboratory Last Values WBC 4.8 K/mm3 (4.0-10.0) D 04/29/16 13:00 RBC 3.64 M/mm3 (4.00-5.60) L 04/29/16 13:00 Hgb 12.2 GM/dL (11.7-16.9) 04/29/16 13:00 Hct 35.5 % (35.4-49) 04/29/16 13:00 MCV 97.6 fl (80-96) H 04/29/16 13:00 MCHC 34.3 g/dl (32.0-35.9) 04/29/16 13:00 RDW 15.0 % (11.9-15.9) 04/29/16 13:00 Plt Count 127 K/MM3 (134-434) L D 04/29/16 13:00 MPV 9.3 fl (7.5-11.1) 04/29/16 13:00 Sodium 140 mmol/L (136-145) 04/29/16 13:00 Potassium 3.4 mmol/L (3.5-5.1) L 04/29/16 13:00 Chloride 103 mmol/L (98-107) 04/29/16 13:00 Carbon Dioxide 28 mmol/L (21-32) 04/29/16 13:00 Anion Gap 9 (8-16) 04/29/16 13:00 BUN 6 mg/dL (7-18) L D 04/29/16 13:00 Creatinine 0.7 mg/dL (0.7-1.3) 04/29/16 13:00 Creat Clearance w eGFR > 60 (>60) 04/29/16 13:00 POC Glucometer 108 UNITS (()) 04/30/16 06:01 Random Glucose 191 mg/dL (74-106) H D 04/29/16 13:00 Calcium 8.3 mg/dL (8.5-10.1) L 04/29/16 13:00 Total Bilirubin 0.5 mg/dL (0.2-1.0) D 04/29/16 13:00 AST 78 U/L (15-37) H D 04/29/16 13:00 ALT 67 U/L (12-78) D 04/29/16 13:00 Alkaline Phosphatase 157 U/L (45-117) H 04/29/16 13:00 Total Protein 7.2 g/dl (6.4-8.2) 04/29/16 13:00 Albumin 3.2 g/dl (3.4-5.0) L 04/29/16 13:00 Urine Color [place] 04/29/16 23:00 Urine Appearance Clear 04/29/16 23:00 Urine pH 6.0 (5.0-8.0) 04/29/16 23:00 Ur Specific [place] 1.013 (1.001-1.035) 04/29/16 23:00 Urine Protein Negative (NEGATIVE) 04/29/16 23:00 Urine Glucose (UA) 1+ (NEGATIVE) H 04/29/16 23:00 Urine Ketones Negative (NEGATIVE) 04/29/16 23:00 Urine Blood Negative (NEGATIVE) 04/29/16 23:00 Urine Nitrite Negative (NEGATIVE) 04/29/16 23:00 Urine Bilirubin Negative (NEGATIVE) 04/29/16 23:00 Urine Urobilinogen 4.0 e.u/dl E.U./dl (0.2-1.0) 04/29/16 23:00 Ur Leukocyte Esterase Trace (NEGATIVE) H 04/29/16 23:00 Hepatitis C Antibody 0.1 s/co ratio (0.0-0.9) 04/29/16 15:00 Assessment: 04/30/16 10:04 WITHDRAWAL SX Plan: CONTINUE DETOX
[2016-04-30] MEDS: LISINOPRIL 10 MG TABLET (FP) PO SCH ×2 (10:12→22:52)
[2016-04-30] MEDS: PRENATAL VITAMINS W/ FOLIC ACID TABLET (FP) PO SCH (10:12)
[2016-04-30] MEDS: NICOTINE 14 MG/24 HOURS TOPICAL PATCH TD SCH (10:13)
[2016-04-30] MEDS ORDERED: chlordiazePOXIDE HCL 25 MG CAPSULE PO ONE (14:00)
[2016-04-30] MEDS ORDERED: POTASSIUM CHLORIDE ORAL LIQUID 20 MEQ/15 ML PO ONE (18:08)
[2016-04-30] MEDS ORDERED: ZOLPIDEM TARTRATE 5 MG TABLET PO PRN ×2 (18:44→19:54)
--- NOTE | 2016-04-30 18:44 | CONSULT ---
[facility] Psychiatric Consult - Data Date of interview: 04/30/16 Admission source: [facility] Identifying data: Readmission to [facility] for this 51 y/o AA male seeking detox treatment on for alcohol dependence.Patient is single,a father of two,domiciled,unemployed and supported on [facility] benefits. Substance Abuse History: - Smoking Cessation. Smoking history: Current every day smoker. Have you smoked in the past 12 months: Yes. Aproximately how many cigarettes per day: 10. Hx Chewing Tobacco Use: No. Initiated information on smoking cessation: Yes. 'Breaking Loose' booklet given: 04/29/16. - Substance & Tx. History. Hx Alcohol Use: Yes (BEER). Hx Substance Use: No (DENIES). Substance Use Type: Alcohol. Hx Substance Use Treatment: Yes ([facility]-DETOX). - Substances Abused. Alcohol. Route: Oral. Frequency: Daily. Amount used: vodka 1 pint, beer 4 of 16 oz. Age of first use: 16. Date of Last Use: . Confirmed by the patient. Medical History: Diabetes mellitus,withdrawal-related seizures an a history of pancreatitis. Psychiatric History: Patient denies. Physical/Sexual Abuse/Trauma History: Patient denies. Additional Comment: Urine Drug Screen Results: BZO-Benzodiazepines.Noted. Mental Status Exam - Mental Status Exam Alert and Oriented to: Time, Place, Person Cognitive Function: Good Patient Appearance: Well Groomed Mood: Hopeful, Euthymic Affect: Appropriate, Normal Range Patient Behavior: Fatigued, Cooperative Speech Pattern: Clear Voice Loudness: Normal Thought Process: Intact, Goal Oriented Thought Disorder: Not Present Hallucinations: Denies Suicidal Ideation: Denies Homicidal Ideation: Denies Insight/Judgement: Fair Sleep: Poorly, Difficulty falling asleep Appetite: Good Muscle strength/Tone: Normal Gait/Station: Normal Psychiatric Findings - Problem List ([place] 1, 2,3) (1) Alcohol dependence with uncomplicated withdrawal Current Visit: Yes Status: Acute (2) Essential hypertension Current Visit: Yes Status: Chronic (3) Type II diabetes mellitus Current Visit: Yes Status: Chronic Qualifiers: Diabetes mellitus complication status: without complication (4) Asthma Current Visit: Yes Status: Chronic (5) Insomnia Current Visit: Yes Status: Acute - Initial Treatment Plan Initial Treatment Plan: Psychoeducation.Detoxification.Zolpidem 10 mg po hs prn.Patient made aware of parasomnias.He agrees with this plan.Observation.
[2016-04-30] MEDS: THIAMINE HCL 100 MG TABLET (FP) PO SCH (22:05)
[2016-04-30] MEDS: chlordiazePOXIDE 5 MG CAPSULE PO SCH (22:05)
[2016-04-30] MEDS: POTASSIUM CHLORIDE ORAL LIQUID 20 MEQ/15 ML PO SCH (22:06)
[2016-05-01] MEDS: chlordiazePOXIDE 5 MG CAPSULE PO SCH ×3 (05:52→17:42)
[2016-05-01] MEDS: metFORMIN HCL 500 MG TABLET (FP) PO SCH ×2 (07:23→17:41)
[2016-05-01] MEDS: LISINOPRIL 10 MG TABLET (FP) PO SCH ×2 (10:06→22:09)
[2016-05-01] MEDS: POTASSIUM CHLORIDE ORAL LIQUID 20 MEQ/15 ML PO SCH (10:06)
[2016-05-01] MEDS: PRENATAL VITAMINS W/ FOLIC ACID TABLET (FP) PO SCH (10:06)
[2016-05-01] MEDS: NICOTINE 14 MG/24 HOURS TOPICAL PATCH TD SCH (10:06)
--- NOTE | 2016-05-01 10:40 | PN ---
[facility] CIWA - CIWA Score Nausea/Vomitin-No Nausea/No Vomiting Muscle Tremors: 4-Moderate,w/Arms Extend Anxiety: 4-Mod. Anxious/Guarded Agitation: 4-Moderately Restless Paroxysmal Sweats: 1-Minimal Palms Moist Orientation: 0-Oriented Tacttile Disturbances: 3-Moderate Itch/Numb/Burn Auditory Disturbances: 0-None Visual Disturbances: 0-None Headache: 0-None Present CIWA-Ar Total Score: 16 BHS Progress Note (SOAP) Subjective: ANXIETY,RUNNY NOSE,TREMORS. Objective: 05/01/16 10:39 Vital Signs Temperature 96.9 F L 05/01/16 09:35 Pulse Rate 86 05/01/16 09:35 Respiratory Rate 18 05/01/16 09:35 Blood Pressure 161/90 05/01/16 09:35 O2 Sat by Pulse Oximetry (%) Assessment: 05/01/16 10:40 WITHDRAWAL SX Plan: CONTINUE DETOX ACTIFED DIRECTED.
[2016-05-01] MEDS: BACITRACIN 0.9 GM PACKET TP SCH ×2 (12:02→22:09)
--- NOTE | 2016-05-01 13:17 | EKG ---
Test Reason : Blood Pressure : / mmHG Vent. Rate : 093 BPM Atrial Rate : 093 BPM P-R Int : 000 ms QRS Dur : 086 ms QT Int : 354 ms P-R-T Axes : 092 084 061 degrees QTc Int : 440 ms NORMAL SINUS RHYTHM MINIMAL VOLTAGE CRITERIA FOR LVH, MAY BE NORMAL VARIANT POSSIBLE ANTERIOR INFARCT , AGE UNDETERMINED ABNORMAL ECG WHEN COMPARED WITH ECG OF 24-APR-2016 20:04, NONSPECIFIC T WAVE ABNORMALITY, IMPROVED IN LATERAL LEADS Confirmed by DHARA AGOSTO MD ([id number]) on 05/01/2016 1:17:38 PM Referred By: Confirmed By:DHARA AGOSTO MD
--- NOTE | 2016-05-01 13:17 | EKG ---
Test Reason : Blood Pressure : / mmHG Vent. Rate : 088 BPM Atrial Rate : 088 BPM P-R Int : 184 ms QRS Dur : 098 ms QT Int : 330 ms P-R-T Axes : 072 077 065 degrees QTc Int : 399 ms NORMAL SINUS RHYTHM MINIMAL VOLTAGE CRITERIA FOR LVH, MAY BE NORMAL VARIANT ANTEROSEPTAL INFARCT (CITED ON OR BEFORE 29-APR-2016) ABNORMAL ECG WHEN COMPARED WITH ECG OF 29-APR-2016 17:45, NO SIGNIFICANT CHANGE WAS FOUND Confirmed by DHARA AGOSTO MD ([id number]) on 05/01/2016 1:17:41 PM Referred By: Confirmed By:DHARA AGOSTO MD
[2016-05-01] MEDS: chlordiazePOXIDE HCL 10 MG CAPSULE PO SCH (22:09)
[2016-05-01] MEDS: diphenhydrAMINE HCL 50 MG CAPSULE PO PRN (22:09)
[2016-05-01] MEDS: THIAMINE HCL 100 MG TABLET (FP) PO SCH (22:09)
[2016-05-02] MEDS: chlordiazePOXIDE HCL 10 MG CAPSULE PO SCH ×3 (05:50→17:20)
[2016-05-02] MEDS: MAG HYDROX/AL HYDROX/SIMETH 30 ML UNIT-DOSE CUP PO PRN ×2 (06:10→22:09)
[2016-05-02] MEDS: metFORMIN HCL 500 MG TABLET (FP) PO SCH ×2 (06:35→17:20)
[2016-05-02] MEDS: LISINOPRIL 10 MG TABLET (FP) PO SCH ×2 (10:15→22:09)
[2016-05-02] MEDS: BACITRACIN 0.9 GM PACKET TP SCH ×2 (10:15→22:09)
[2016-05-02] MEDS: NICOTINE 14 MG/24 HOURS TOPICAL PATCH TD SCH (10:15)
[2016-05-02] MEDS: PRENATAL VITAMINS W/ FOLIC ACID TABLET (FP) PO SCH (10:15)
--- NOTE | 2016-05-02 12:14 | PN ---
S Progress Note (SOAP) Subjective: ALERT O X 3. LESS FATIGUE AND OOB ON HALLWAY. DECREASED TREMORS/ANXIETY. Objective: 05/02/16 12:11 Vital Signs Temperature 96.4 F L 05/02/16 09:57 Pulse Rate 81 05/02/16 09:57 Respiratory Rate 20 05/02/16 09:57 Blood Pressure 156/96 05/02/16 09:57 O2 Sat by Pulse Oximetry (%) Laboratory Last Values WBC 4.8 K/mm3 (4.0-10.0) D 04/29/16 13:00 RBC 3.64 M/mm3 (4.00-5.60) L 04/29/16 13:00 Hgb 12.2 GM/dL (11.7-16.9) 04/29/16 13:00 Hct 35.5 % (35.4-49) 04/29/16 13:00 MCV 97.6 fl (80-96) H 04/29/16 13:00 MCHC 34.3 g/dl (32.0-35.9) 04/29/16 13:00 RDW 15.0 % (11.9-15.9) 04/29/16 13:00 Plt Count 127 K/MM3 (134-434) L D 04/29/16 13:00 MPV 9.3 fl (7.5-11.1) 04/29/16 13:00 Sodium 140 mmol/L (136-145) 04/29/16 13:00 Potassium 3.4 mmol/L (3.5-5.1) L 04/29/16 13:00 Chloride 103 mmol/L (98-107) 04/29/16 13:00 Carbon Dioxide 28 mmol/L (21-32) 04/29/16 13:00 Anion Gap 9 (8-16) 04/29/16 13:00 BUN 6 mg/dL (7-18) L D 04/29/16 13:00 Creatinine 0.7 mg/dL (0.7-1.3) 04/29/16 13:00 Creat Clearance w eGFR > 60 (>60) 04/29/16 13:00 POC Glucometer 177 UNITS (()) 05/02/16 05:52 Random Glucose 191 mg/dL (74-106) H D 04/29/16 13:00 Calcium 8.3 mg/dL (8.5-10.1) L 04/29/16 13:00 Total Bilirubin 0.5 mg/dL (0.2-1.0) D 04/29/16 13:00 AST 78 U/L (15-37) H D 04/29/16 13:00 ALT 67 U/L (12-78) D 04/29/16 13:00 Alkaline Phosphatase 157 U/L (45-117) H 04/29/16 13:00 Total Protein 7.2 g/dl (6.4-8.2) 04/29/16 13:00 Albumin 3.2 g/dl (3.4-5.0) L 04/29/16 13:00 Urine Color [place] 04/29/16 23:00 Urine Appearance Clear 04/29/16 23:00 Urine pH 6.0 (5.0-8.0) 04/29/16 23:00 Ur Specific [place] 1.013 (1.001-1.035) 04/29/16 23:00 Urine Protein Negative (NEGATIVE) 04/29/16 23:00 Urine Glucose (UA) 1+ (NEGATIVE) H 04/29/16 23:00 Urine Ketones Negative (NEGATIVE) 04/29/16 23:00 Urine Blood Negative (NEGATIVE) 04/29/16 23:00 Urine Nitrite Negative (NEGATIVE) 04/29/16 23:00 Urine Bilirubin Negative (NEGATIVE) 04/29/16 23:00 Urine Urobilinogen 4.0 e.u/dl E.U./dl (0.2-1.0) 04/29/16 23:00 Ur Leukocyte Esterase Trace (NEGATIVE) H 04/29/16 23:00 RPR Titer Nonreactive (NONREACTIVE) 04/29/16 13:00 Hepatitis C Antibody 0.1 s/co ratio (0.0-0.9) 04/29/16 15:00 Assessment: 05/02/16 12:12 WITHDRAWAL SX Plan: CONTINUE DETOX REPEAT UA TODAY
[2016-05-02] MEDS ORDERED: ZOLPIDEM TARTRATE 10 MG TABLET (PARK CARE ONLY) PO PRN (18:35)
--- NOTE | 2016-05-02 19:20 | PN ---
S Progress Note Note: received nurse call, patient refuses librium 10 mg less withdrawal sx observation level of care
[2016-05-02 19:37] LABS: URINE APPEARANCE CLEAR; URINE BILIRUBIN NEGATIVE (NEGATIVE); URINE BLOOD NEGATIVE (NEGATIVE); URINE COLOR LTYELLOW; URINE GLUCOSE (UA) NEGATIVE (NEGATIVE); URINE KETONE NEGATIVE (NEGATIVE); URINE LEUK ESTERASE NEGATIVE (NEGATIVE); URINE NITRITE NEGATIVE (NEGATIVE); URINE PROTEIN NEGATIVE (NEGATIVE); URINE UROBILINOGEN NEGATIVE E.U./dl (0.2-1.0)
[2016-05-02] MEDS: diphenhydrAMINE HCL 50 MG CAPSULE PO PRN (22:09)
[2016-05-02] MEDS: THIAMINE HCL 100 MG TABLET (FP) PO SCH (22:30)
[2016-05-03] MEDS: metFORMIN HCL 500 MG TABLET (FP) PO SCH (06:59)
[2016-05-03 10:36] VITALS: BP 150/85; PULSE 106; TEMP 98.6
--- NOTE | 2016-05-03 10:56 | DS ---
[facility] Detox Discharge Summary Admission Date: 04/29/16 Discharge Date: 05/03/16 - History Present History: Alcohol Dependence Additional Comments: DETOX COMPLETED. ALERT O X 3. NAD. PT INSTRUCTED TO F/U WITH PMD, DR RILEY(?) AT [facility] ([facility] FOR MEDICAL MANAGEMENT OF COMORBID CONDITIONS. PT REMINDED TO CONTINUE TO SEEK FOR SOBRIETY. Pertinent Past History: ASTHMA HTN TYPE 2 DM CHEST PAIN FALLS DUE TO ALCOHOL INTOXICATION HX SEIZURES DUE TO ALCOHOL WITHDRAWALS HX PANCREATITIS - Physical Exam Results Vital Signs: Vital Signs Temperature 98.6 F 05/03/16 10:36 Pulse Rate 106 H 05/03/16 10:36 Respiratory Rate 20 05/03/16 10:36 Blood Pressure 150/85 05/03/16 10:36 O2 Sat by Pulse Oximetry (%) Pertinent Admission Physical Exam Findings: WITHDRAWAL SX Laboratory Last Values WBC 4.8 K/mm3 (4.0-10.0) D 04/29/16 13:00 RBC 3.64 M/mm3 (4.00-5.60) L 04/29/16 13:00 Hgb 12.2 GM/dL (11.7-16.9) 04/29/16 13:00 Hct 35.5 % (35.4-49) 04/29/16 13:00 MCV 97.6 fl (80-96) H 04/29/16 13:00 MCHC 34.3 g/dl (32.0-35.9) 04/29/16 13:00 RDW 15.0 % (11.9-15.9) 04/29/16 13:00 Plt Count 127 K/MM3 (134-434) L D 04/29/16 13:00 MPV 9.3 fl (7.5-11.1) 04/29/16 13:00 Sodium 140 mmol/L (136-145) 04/29/16 13:00 Potassium 3.4 mmol/L (3.5-5.1) L 04/29/16 13:00 Chloride 103 mmol/L (98-107) 04/29/16 13:00 Carbon Dioxide 28 mmol/L (21-32) 04/29/16 13:00 Anion Gap 9 (8-16) 04/29/16 13:00 BUN 6 mg/dL (7-18) L D 04/29/16 13:00 Creatinine 0.7 mg/dL (0.7-1.3) 04/29/16 13:00 Creat Clearance w eGFR > 60 (>60) 04/29/16 13:00 POC Glucometer 181 UNITS (()) 05/03/16 05:25 Random Glucose 191 mg/dL (74-106) H D 04/29/16 13:00 Calcium 8.3 mg/dL (8.5-10.1) L 04/29/16 13:00 Total Bilirubin 0.5 mg/dL (0.2-1.0) D 04/29/16 13:00 AST 78 U/L (15-37) H D 04/29/16 13:00 ALT 67 U/L (12-78) D 04/29/16 13:00 Alkaline Phosphatase 157 U/L (45-117) H 04/29/16 13:00 Total Protein 7.2 g/dl (6.4-8.2) 04/29/16 13:00 Albumin 3.2 g/dl (3.4-5.0) L 04/29/16 13:00 Urine Color [place] 05/02/16 19:28 Urine Appearance Clear 05/02/16 19:28 Urine pH 7.0 (5.0-8.0) 05/02/16 19:[address] 1.012 (1.001-1.035) 05/02/16 19:28 Urine Protein Negative (NEGATIVE) 05/02/16 19:28 Urine Glucose (UA) Negative (NEGATIVE) 05/02/16 19:28 Urine Ketones Negative (NEGATIVE) 05/02/16 19:28 Urine Blood Negative (NEGATIVE) 05/02/16 19:28 Urine Nitrite Negative (NEGATIVE) 05/02/16 19:28 Urine Bilirubin Negative (NEGATIVE) 05/02/16 19:28 Urine Urobilinogen Negative E.U./dl (0.2-1.0) 05/02/16 19:28 Ur Leukocyte Esterase Negative (NEGATIVE) 05/02/16 19:28 RPR Titer Nonreactive (NONREACTIVE) 04/29/16 13:00 Hepatitis C Antibody 0.1 s/co ratio (0.0-0.9) 04/29/16 15:00 - Treatment Hospital Course: Detox Protocol Followed, Detoxed Safely, Responded well, Discharged Condition Good, Rehab Referral Accepted - Medication Discharge Medications: Ambulatory Orders Lisinopril [Prinivil] 20 mg PO DAILY #30 tablet 09/21/13 Metformin HCl [Glucophage -] 500 mg PO BIDAC #60 tablet 09/21/13 Albuterol Sulfate Inhaler - [Ventolin Hfa Inhaler -] 2 inh PO Q6H 04/29/16 - Diagnosis (1) Alcohol dependence with uncomplicated withdrawal Current Visit: Yes Status: Acute (2) Asthma Current Visit: Yes Status: Chronic (3) Essential hypertension Current Visit: Yes Status: Chronic (4) Type II diabetes mellitus Current Visit: Yes Status: Chronic Qualifiers: Diabetes mellitus complication status: without complication (5) Pancreatitis Current Visit: No Status: Resolved Qualifiers: Chronicity: acute Pancreatitis type: alcohol induced (6) Alcohol related seizure Current Visit: Yes Status: Suspected - AMA Did Patient Leave Against Medical Advice: No
[2016-05-03] MEDS: LISINOPRIL 10 MG TABLET (FP) PO SCH (11:00)
[2016-05-03] MEDS: PRENATAL VITAMINS W/ FOLIC ACID TABLET (FP) PO SCH (11:00)
[2016-05-03] MEDS: NICOTINE 14 MG/24 HOURS TOPICAL PATCH TD SCH (11:00)
[2016-05-03] MEDS: BACITRACIN 0.9 GM PACKET TP SCH (11:00)
== END 2016-05-03 09:20 | disposition home or self-care (01) | DRG 897 ==
LOC: YASAS 10:04 → Y3N 17:51
PROVIDERS: ADMIT Internal Medicine Addiction Medicine; ATTEND Internal Medicine
PROC: HZ2ZZZZ Detoxification Services for Substance Abuse Treatment (ICD-10-PCS; principal; 2016-05-03)
DX: F10.230 Alcohol dependence with withdrawal, uncomplicated (principal); G40.509 Epileptic seizures related to external causes, not intractable, without status epilepticus; G47.00 Insomnia, unspecified; I10 Essential (primary) hypertension; E11.9 Type 2 diabetes mellitus without complications; Z79.84 Long term (current) use of oral hypoglycemic drugs
CPT/HCPCS: 36415; 80053; 81003; 81015; 85027; 86593; 93005; 93010